=== PATIENT | female | born 1950 | race Caucasian/White ===

== ENCOUNTER 2017-10-31 10:32 | Inpatient (IN) | payer OTHER ==
[~2017-10-31] VITALS: Ht 157.5 cm; Wt 52.2 kg
[2017-10-31] MEDS ORDERED: SODIUM CHLORIDE 0.9% 1000ML 1,000 ML IV ONE (11:15)
[2017-10-31] MEDS ORDERED: THIAMINE HCL INJ 100 MG/ML 2ML VIAL IV ONE (11:15)
[2017-10-31 11:32] LABS: BASOPHILS % 0.3 % (0.0-1.0); EOSINOPHILS % 0.2 % (0.0-6.0); HEMOGLOBIN 14.8 g/dL (12.0-16.0); LYMPHOCYTES # (AUTO) 2.3 (1.0-3.2); LYMPHOCYTES % 20.7 % (18.0-39.1); MEAN CORPUSCULAR HEMOGLOBIN 29.4 pg (28-32); MEAN CORPUSCULAR HGB CONC 36.1 g/dL (31-35); MEAN CORPUSCULAR VOLUME 81.5 fL (81-99); MONOCYTES # (AUTO) 1.2 (0.2-0.8); MONOCYTES % 10.6 % (4.4-11.3); NEUTROPHILS # (AUTO) 7.4 (2.1-6.9); NEUTROPHILS % 67.7 % (38.7-80.0); PLATELET COUNT 292 x10e3/uL (140-360); RED BLOOD COUNT 5.03 x10e6/uL (3.6-5.1); RED CELL DISTRIBUTION WIDTH 12.2 % (11.7-14.4)
--- NOTE | 2017-10-31 11:38 | Diagnostic Imaging Report ---
PROCEDURE: Frontal and lateral views of the chest. COMPARISON: None. INDICATIONS: COUGH, CONGESTION FINDINGS: Lines/tubes: None. Lungs: The lungs are well inflated and clear. There is no evidence of pneumonia or pulmonary edema. Pleura: There is no pleural effusion or pneumothorax. Heart and mediastinum: The heart and the mediastinum are normal. Bones: No acute bony abnormality. IMPRESSION: 1. No acute cardiopulmonary disease. Dictated by: Andrez Youssef M.D. on 10/31/2017 at 11:44 Electronically approved by: Andrez Youssef M.D. on 10/31/2017 at 11:44
[2017-10-31 11:53] LABS: ALANINE AMINOTRANSFERASE 31 IU/L (0-55); ALKALINE PHOSPHATASE 131 IU/L (40-150); ANION GAP 18.2 mmol/L (8-16); BLOOD UREA NITROGEN 9 mg/dL (7-26); BUN/CREATININE RATIO 10 (6-25); CALCIUM 9.8 mg/dL (8.4-10.2); CARBON DIOXIDE 27 mmol/L (22-29); CHLORIDE 76 mmol/L (98-107); CREATININE, SERUM 0.89 mg/dL (0.57-1.11); EST GLOMERULAR FILTRATION RATE > 60 ML/MIN (60-); GLUCOSE 140 mg/dL (74-118); LIPASE 32 U/L (8-78); MAGNESIUM 1.7 MG/DL (1.3-2.1); PHOSPHORUS 4.5 MG/DL (2.3-4.7); POTASSIUM 3.2 mmol/L (3.5-5.1)
[2017-10-31 11:54] LABS: SODIUM 118 mmol/L (136-145)
[2017-10-31 12:41] LABS: BILIRUBIN,URINE NEGATIVE (NEGATIVE); CLARITY,URINE CLOUDY (CLEAR); COLOR,URINE YELLOW (YELLOW); KETONES,URINE NEGATIVE (NEGATIVE); LEUKOCYTE ESTERASE ,URINE 1+ (NEGATIVE); NITRITE,URINE NEGATIVE (NEGATIVE); PROTEIN,URINE DIPSTICK 1+ (NEGATIVE); URINE UROBILINOGEN 0.2 mg/dL (0.2 - 1)
[2017-10-31 12:51] LABS: BACTERIA,URINE MANY /HPF; EPITHELIAL CELLS,URINE RARE /LPF; RBC,URINE 0-5 /HPF (0-5)
[2017-10-31] MEDS ORDERED: SODIUM CHLORIDE 0.9% 50ML 50 ML ONE (13:00)
[2017-10-31] MEDS ORDERED: IOPAMIDOL 370 MG/ML 200 ML INFUS..BTL INJ ONE (13:00)
--- NOTE | 2017-10-31 13:00 | Diagnostic Imaging Report ---
PROCEDURE: CT ABDOMEN AND PELVIS WITH CONTRAST TECHNIQUE: The abdomen and pelvis were scanned utilizing a multidetector helical scanner from the diaphragm to the lesser trochanter after the IV administration of 100 cc of Isovue 370 and the oral administration of water. Coronal and sagittal multiplanar reformations were obtained. COMPARISON: None. INDICATIONS: MID ABDOMINAL DISCOMFORT, NAUSEA, WEAKNESS FINDINGS: LOWER THORAX: Normal. HEPATOBILIARY: Hepatic parenchyma is diffusely hypoattenuating compatible with steatosis. Low attenuation lesions (less than 10 Hounsfield units) measured 3.3 cm in segment 2 and 3.9 cm in segment 8-5 compatible with simple cysts. Additional subcentimeter hypoattenuating lesions, too small to further characterize but likely represent additional small cysts are identified within the liver. Small radiopaque calculi within the dependent portion of the gallbladder. No wall thickening or pericholecystic inflammation. SPLEEN: No splenomegaly. PANCREAS: No focal masses or ductal dilatation. ADRENALS: No adrenal nodules. KIDNEYS/URETERS: No hydronephrosis, stones, or solid mass lesions. PELVIC ORGANS/BLADDER: The urinary bladder is incompletely distended but otherwise unremarkable. The uterus is anteflexed and appears normal. No adnexal mass. PERITONEUM / RETROPERITONEUM: No free air or fluid. LYMPH NODES: No pelvic sidewall, retroperitoneal, or mesenteric lymphadenopathy. VESSELS: There is atherosclerotic calcification of the abdominal aorta and major branch vessels without aneurysmal dilatation. Moderate celiac axis origin stenosis. Widely patent SMA and BELEN origins. Portal vein, splenic vein, and central superior mesenteric vein are patent. GI TRACT: There is mild wall thickening and mucosal enhancement of the rectum and sigmoid colon. Normal appendix. The stomach is collapsed with prominence of the rugal folds. No small bowel dilatation to suggest obstruction. BONES AND SOFT TISSUES: No focal soft tissue abnormalities. No osseous destructive lesions. Degenerative disc changes of the lumbar spine. IMPRESSION: Findings suggest proctocolitis, likely infectious or inflammatory in nature. No aurelia perforation or drainable fluid collection. Atherosclerotic vascular disease. Cholelithiasis. Dictated by: Harpreet Slater M.D. on 10/31/2017 at 13:07 Electronically approved by: Harpreet Slater M.D. on 10/31/2017 at 13:07
[2017-10-31] MEDS ORDERED: SODIUM CHLORIDE FLUSH 10 ML SYR INJ PRN (14:30)
[2017-10-31] MEDS ORDERED: CHLORDIAZEPOXIDE HCL 25 MG CAP PO PRN (14:30)
[2017-10-31] MEDS ORDERED: KCL 40MEQ/0.9% SOD CHL 1,000 ML IV ONE (14:30)
[2017-10-31] MEDS: ERTAPENEM 1GM/NS 100ML 100 ML IV SCH (14:41)
[2017-10-31 16:45] VITALS: BP 130/67
[2017-10-31 17:55] VITALS: BP 130/67
[2017-10-31] MEDS ORDERED: SODIUM CHLORIDE 0.9% 1000ML 1,000 ML IV SCH (18:00)
[2017-10-31] MEDS ORDERED: CHLORDIAZEPOXIDE HCL 10 MG CAP PO PRN (18:00)
[2017-10-31] MEDS: FAMOTIDINE 20 MG/2 ML VIAL IV SCH (18:22)
[2017-10-31 19:50] LABS: ANION GAP 16.5 mmol/L (8-16); BLOOD UREA NITROGEN 7 mg/dL (7-26); BUN/CREATININE RATIO 10 (6-25); CARBON DIOXIDE 26 mmol/L (22-29); CHLORIDE 81 mmol/L (98-107); CREATININE, SERUM 0.72 mg/dL (0.57-1.11); EST GLOMERULAR FILTRATION RATE > 60 ML/MIN (60-); GLUCOSE 98 mg/dL (74-118)
--- NOTE | 2017-10-31 19:50 | Consultation ---
DATE OF CONSULTATION: October 31, 2017 ATTENDING PHYSICIAN: Rolo Douglas MD REASON FOR CONSULTATION: Hyponatremia. HISTORY OF PRESENT ILLNESS: The patient is a pleasant, 67-year-old female with no significant past medical history, positive for smoking, positive for alcohol abuse. She was admitted with nausea, vomiting, not feeling well for about a week. The patient has been vomiting maybe once a day. She drinks a 12-pack of beer or sometimes more every day, and her last drink was yesterday. She also smokes about a pack per day for a long time. She was not feeling well. No fever. No hematemesis. No melena or hematochezia. Found to have a sodium of 118. Per patient, she never had any problem with any sodium in the past. She takes [id number] Tylenol or ibuprofen occasionally for any pain. Found to have sodium of 118. Given 1 L IV fluid bolus and currently on normal saline and 40 of Kcl at 100 mL per hour. The potassium was 3.2. Magnesium was normal at 1.7. Currently, the patient is alert and oriented times 3. At present, she is not in apparent distress. PAST MEDICAL HISTORY: As above. PAST SURGICAL HISTORY: None. FAMILY HISTORY: No history of any kidney disease. SOCIAL HISTORY: As per HPI. ALLERGIES: KNOWN TO CODEINE. MEDICATIONS: Currently here in the hospital on famotidine, ertapenem, normal saline at 100 mL an hour with 40 of K in that. REVIEW OF SYSTEMS GENERAL: No fatigue. No fever, no chills. HEENT: No headache or blurred vision. NECK: No dysphagia. CARDIOVASCULAR: No chest pain, no PND. No orthopnea. RESPIRATORY: No shortness of breath or dyspnea on exertion. No cough. No hemoptysis. GI: Positive nausea. Positive intermittent vomiting. No abdominal pain. No hematemesis, melena or hematochezia. MUSCULOSKELETAL: No ankle swelling. NEUROLOGICAL: No numbness, weakness or tingling. SKIN: No new rash. PHYSICAL EXAMINATION VITAL SIGNS: Blood pressure 130/67, pulse 86, respirations 20, temperature 97.5, 97% on room air. GENERAL: Awake, alert and oriented times 3. Not in apparent distress. HEENT: PERRLA. The extraocular muscles are intact. NECK: No elevated JVD. HEART: S1 and S2. LUNGS: Clear bilaterally. ABDOMEN: Soft. Bowel sounds positive. EXTREMITIES: No edema. NEUROLOGICAL: No focal deficit. SKIN: No new rash. LABS: White count 10.9, hemoglobin 14.8, platelet count 292. Sodium 118, potassium 3.2, chloride 76, CO2 27, BUN 9, creatinine 0.89, glucose 140, calcium 9.8, phosphorus 4.5, magnesium 1.7. AST 50, ALT 31, albumin 4, lipase 32. UA showed many bacteria, positive leukocyte esterase. Chest x-ray: No acute cardiopulmonary process. CT of the abdomen and pelvis showed proctocolitis. No aurelia perforation. Cholelithiasis. ASSESSMENT AND PLAN 1. Hyponatremia, which is likely chronic as has been having symptoms for more than 24 hours. Currently on normal saline. Will repeat the sodium stat as the patient has a history of alcohol abuse. Will not increase the sodium more than 6 mEq in 24 hours. Her sodium was 118 at 11:30 in the morning. I will decrease IV fluids to 50 mL an hour for now. 2. Hypokalemia. Replace with IV. Magnesium is within the normal range. 3. Proctocolitis on antibiotic. 4. History of alcohol abuse on chlordiazepoxide. 5. Possible delirium tremens. I want to thank Dr. Douglas for the consult. Will follow the patient with you. Job#: [id number]
[2017-10-31 20:10] LABS: POTASSIUM 2.5 mmol/L (3.5-5.1); SODIUM 121 mmol/L (136-145)
[2017-10-31] MEDS ORDERED: POTASSIUM CHLORIDE 20 MEQ TAB CR PO STA (20:29)
[2017-10-31] MEDS ORDERED: POTASSIUM CHLORIDE 20MEQ/100ML 100 ML IV ONE (20:30)
[2017-10-31] MEDS ORDERED: NICOTINE 21 MG/EA PATCH TOP SCH (21:00)
[2017-10-31] MEDS ORDERED: POTASSIUM CHLORIDE 20 MEQ TAB CR PO NR (22:30)
[2017-11-01 05:00] LABS: BASOPHILS % 0.4 % (0.0-1.0); EOSINOPHILS % 0.4 % (0.0-6.0); HEMATOCRIT 34.2 % (34.2-44.1); LYMPHOCYTES # (AUTO) 2.4 (1.0-3.2); LYMPHOCYTES % 26.3 % (18.0-39.1); MEAN CORPUSCULAR HEMOGLOBIN 29.3 pg (28-32); MEAN CORPUSCULAR HGB CONC 35.1 g/dL (31-35); MEAN CORPUSCULAR VOLUME 83.6 fL (81-99); MONOCYTES # (AUTO) 1.1 (0.2-0.8); MONOCYTES % 11.6 % (4.4-11.3); NEUTROPHILS # (AUTO) 5.6 (2.1-6.9); NEUTROPHILS % 60.8 % (38.7-80.0); PLATELET COUNT 254 x10e3/uL (140-360); RED BLOOD COUNT 4.09 x10e6/uL (3.6-5.1); RED CELL DISTRIBUTION WIDTH 12.3 % (11.7-14.4)
[2017-11-01 05:40] LABS: ALANINE AMINOTRANSFERASE 26 IU/L (0-55); ALBUMIN 3.5 g/dL (3.5-5.0); ALBUMIN/GLOBULIN RATIO 1.1 (0.8-2.0); ALKALINE PHOSPHATASE 103 IU/L (40-150); ANION GAP 15.3 mmol/L (8-16); BLOOD UREA NITROGEN 7 mg/dL (7-26); BUN/CREATININE RATIO 12 (6-25); CALCIUM 9.4 mg/dL (8.4-10.2); CARBON DIOXIDE 23 mmol/L (22-29); CHLORIDE 93 mmol/L (98-107); CHOL/HDL RATIO 1.7 (3.0-3.6); CHOLESTEROL 134 MD/DL (0-199); EST GLOMERULAR FILTRATION RATE > 60 ML/MIN (60-); GLUCOSE 98 mg/dL (74-118); HDL CHOLESTEROL 79 MG/DL (40-60); LDL CHOLESTEROL 46 MG/DL (60-130); MAGNESIUM 1.7 MG/DL (1.3-2.1); PHOSPHORUS 2.7 MG/DL (2.3-4.7); POTASSIUM 4.3 mmol/L (3.5-5.1); SODIUM 127 mmol/L (136-145); TRIGLYCERIDES 46 MG/DL (0-149)
[2017-11-01 08:00] VITALS: BP 136/64
[2017-11-01] MEDS: FAMOTIDINE 20 MG/2 ML VIAL IV SCH ×2 (08:45→17:04)
[2017-11-01] MEDS: NICOTINE 21 MG/EA PATCH TOP SCH ×2 (08:45→20:45)
[2017-11-01 10:49] VITALS: BP 136/64
[2017-11-01 10:51] LABS: ANION GAP 12.8 mmol/L (8-16); BLOOD UREA NITROGEN 6 mg/dL (7-26); BUN/CREATININE RATIO 10 (6-25); CALCIUM 9.7 mg/dL (8.4-10.2); CARBON DIOXIDE 27 mmol/L (22-29); CHLORIDE 92 mmol/L (98-107); CREATININE, SERUM 0.63 mg/dL (0.57-1.11); EST GLOMERULAR FILTRATION RATE > 60 ML/MIN (60-); GLUCOSE 105 mg/dL (74-118); POTASSIUM 4.8 mmol/L (3.5-5.1); SODIUM 127 mmol/L (136-145)
[2017-11-01 12:00] VITALS: BP_SYST 131; BP_SYST 136; BP_DIAS 64; BP_DIAS 81
[2017-11-01] MEDS: ERTAPENEM 1GM/NS 100ML 100 ML IV SCH (13:32)
[2017-11-01] MEDS: DEXTROSE 5% 1,000 ML IV SCH (13:32)
[2017-11-01 16:00] VITALS: BP 154/73
[2017-11-01] MEDS ORDERED: ACETAMINOPHEN 325 MG TAB PO PRN (16:15)
--- NOTE | 2017-11-01 16:26 | History and Physical ---
CHIEF COMPLAINT: Generalized weakness, not feeling well, dizziness. HISTORY OF PRESENT ILLNESS: Patient is a 67-year-old female with alcoholism, extensive alcohol consumption, who came in with abdominal pain, generalized weakness, nausea, vomiting and progressive weight loss. Patient has a sodium level that was very low on admission. She drinks at least a couple of packs of beers per day. Her sodium level was on admission 118. Potassium level was 3.2. Patient was very weak. Alcohol level is less than 10 since the patient was unable to eat and drink due to her nausea and vomiting. The patient's chest x-ray showed no mass. No pleural effusion. She also had abdominal and pelvic CAT scan that showed cholelithiasis and atherosclerotic vascular disease, but also suggestive of proctocolitis. Patient also had urinary bladder infection. Urinalysis showed 1+ leukocyte esterase, many bacteria. Urine random sodium was 38. Urine osmolality is pending. The patient is otherwise stable. PAST MEDICAL HISTORY: Alcoholism, hypertension, smoker, and progressive weight loss. SOCIAL HISTORY: Patient is a pack per day smoker for many years. She drinks approximately 2 packs of beers per day. ALLERGIES: CODEINE. HOME MEDICATIONS: None. REVIEW OF SYSTEMS: As mentioned. PHYSICAL EXAMINATION GENERAL: The patient is not in acute distress. She is awake. VITAL SIGNS: Temperature is 98. Blood pressure 130/64. Pulse rate 76. Respirations 18. HEENT: Normocephalic, atraumatic. Anicteric. NECK: Supple grossly. PULMONARY: Diminished breath sounds. CARDIOVASCULAR: S1 and S2, regular rate and rhythm. ABDOMEN: Soft. Positive bowel sounds. Cachexia. No distention. EXTREMITIES: No gross cyanosis or edema. NEUROLOGIC: There is no gross focal deficit. LABORATORY: Urinalysis: Cloudy urine, 1+ leukocyte esterase. Sodium is 118, potassium 3.2, chloride 76, bicarb 27. BUN 9 and creatinine 0.9. Glucose 140. Liver enzymes: AST is 50, ALT 31. Vitamin B12 is 384. WBC is 10.9. Hemoglobin 14.8. Hematocrit 41. Platelets 292. Toxicology: Alcohol less than 10. IMAGING: As mentioned, possible proctitis on CT scan of abdomen. Chest x-ray is unremarkable. IMPRESSION 1. Severe hyponatremia. 2. Alcoholism. 3. Intractable nausea and vomiting, could be gastritis. 4. Multiple baseline problems. PLAN: Continue with IV fluid rehydration. Workup for low sodium level. Renal consult. Seizure precautions. DT precautions. Librium as needed. PPI. Patient should be able to go home within 2 to 3 days. Job#: [id number]
[2017-11-01 20:46] VITALS: BP 153/89
[2017-11-02] VITALS: BP 149/74
[2017-11-02 00:46] VITALS: BP 160/86
[2017-11-02] MEDS: DEXTROSE 5% 1,000 ML IV SCH (06:00)
[2017-11-02 06:36] VITALS: BP 169/84
[2017-11-02 08:00] VITALS: BP 148/70
[2017-11-02] MEDS: FAMOTIDINE 20 MG/2 ML VIAL IV SCH (09:08)
[2017-11-02 12:49] VITALS: BP 160/77
[2017-11-02 13:26] VITALS: BP 148/70
[2017-11-02] MEDS: ERTAPENEM 1GM/NS 100ML 100 ML IV SCH (14:24)
--- NOTE | 2017-11-02 15:47 | Discharge Summary ---
[employer]: Dr. Mc Velarde. FINAL DIAGNOSES 1. Severe hyponatremia with a sodium level of 112. 2. Alcoholism. 3. Tobacco smoker with chronic obstructive pulmonary disease. 4. Electrolyte disorder, corrected. 5. Proctocolitis. 6. Urinary tract infection. SUMMARY: Patient is a 67-year-old female who is an alcoholic, drinking two packs of beer per day. She is also a heavy smoker, 1 to 2 packs per day for many years. Came in with low sodium level. The patient is now doing much better. Sodium level is 127, potassium 4.8, chloride 92, bicarb 27, BUN 6, creatinine 0.6, glucose is 105. Her hemoglobin and hematocrit are 12 and 34 respectively. The patient had abdominal CT scan showing that she has proctocolitis and also she had a urinary tract infection. The patient's white cell count has normalized. The urine culture was not done, but urinalysis showed 1+ leukocyte esterase, many bacteria. Patient is stable. She will go home today with Cipro 500 mg twice a day for 7 days, Flagyl 5 mg twice a day for 7 days. The patient will take Claritin 10 mg daily, Atarax 25 mg q.6 p.r.n. for Librium 10 mg q.6 p.r.n. for alcohol craving, ProAir HFA 2 puffs q.4 hours as needed, NicoDerm patch 21 mg to chest wall daily for 14 days and Tessalon Perles 100 mg 1 to 2 tablets q.4 hours as needed for cough. The patient is stable. Discharge home today. Job#: [id number] ILDA
[2017-11-02] MEDS ORDERED: PROAIR HFA INH8.5 GM INH (15:53)
[2017-11-02] MEDS ORDERED: NICOTINE PATCH1 EAC1 TD (15:54)
[2017-11-02] MEDS ORDERED: TESSALON PERLE100 MG PO (15:55)
[2017-11-02] MEDS ORDERED: CLARITIN-D 241 EACH PO (15:55)
[2017-11-02] MEDS ORDERED: HYDROXYZINE HCL25 MG PO (15:56)
[2017-11-02] MEDS ORDERED: CIPRO500 MG PO (15:56)
[2017-11-02] MEDS ORDERED: FLAGYL250 MG PO (15:57)
[2017-11-02] MEDS ORDERED: CHLORDIAZEPOXID25 MG PO (15:58)
== END 2017-11-02 16:34 | disposition home or self-care (01) | DRG 897 ==
LOC: ER 10:32 → ERHOLD 14:27 → MED/SURG2 15:51
PROVIDERS: ADMIT Internal Medicine; ATTEND Internal Medicine
DX: F10.231 Alcohol dependence with withdrawal delirium (principal); E87.1 Hypo-osmolality and hyponatremia; K29.20 Alcoholic gastritis without bleeding; E86.0 Dehydration; K52.82 Eosinophilic colitis; E87.6 Hypokalemia; J44.9 Chronic obstructive pulmonary disease, unspecified; F17.200 Nicotine dependence, unspecified, uncomplicated; E87.8 Other disorders of electrolyte and fluid balance, not elsewhere classified; K52.9 Noninfective gastroenteritis and colitis, unspecified; K70.0 Alcoholic fatty liver; N30.90 Cystitis, unspecified without hematuria; R63.4 Abnormal weight loss; Z68.21 Body mass index [BMI] 21.0-21.9, adult
CPT/HCPCS: 36415; 71046; 74177; 80048; 80053; 80061; 80320; 81001; 82140; 82607; 82977; 83690; 83735; 83935; 84100; 84300; 84425; 85025; 99284; J3411; J3480; J7030; J7070; Q9967

== ENCOUNTER 2017-12-19 09:25 | Emergency (ER) | payer OTHER ==
[~2017-12-19] VITALS: Ht 157.5 cm; Wt 52.2 kg
[~2017-12-19 09:25] MED LIST: CHLORDIAZEPOXID25 MG PO; CIPRO500 MG PO; CLARITIN-D 241 EACH PO; FLAGYL250 MG PO; HYDROXYZINE HCL25 MG PO; NICOTINE PATCH1 EAC1 TD; PROAIR HFA INH8.5 GM INH; TESSALON PERLE100 MG PO
--- NOTE | 2017-12-19 13:05 | Diagnostic Imaging Report ---
History: Bilateral leg pain Comparison studies: None Technique: Axial images were obtained from T11 through the sacrum. Coronal and sagittal images reconstructed from the axial data. Intravenous contrast: None Dose modulation, iterative reconstruction, and/or weight based adjustment of the mA/kV was utilized to reduce the radiation dose to as low as reasonably achievable. Findings: Number of non-rib bearing vertebral bodies: 5 Alignment: Normal lordosis. No scoliosis. Soft tissues: No acute abnormalities. Atherosclerotic calcifications of the abdominal aorta Paraspinal muscles: Unremarkable. Vertebrae: No fractures, infection or neoplasm. Degenerative changes: Partially visualized intervertebral disc degenerative changes at T11-T12 and T12-L1 with associated small Schmorl node and sclerotic changes at L1 superior endplate L1-L2: Patent disc degeneration with decreased intervertebral space and mild L1 inferior endplate sclerotic changes in its posterior aspect. Asymmetric left disc bulge with patent canal and foramina L2-L3: Mild disc bulge with patent canal and foramina L3-L4: Asymmetric left disc bulge with patent canal and mild left foraminal narrowing L4-L5: Diffuse disc bulge with patent canal and mild bilateral foraminal narrowing L5-S1: Diffuse disc bulge and mild facet hypertrophy with patent canal and foramina Sacroiliac joints: No degenerative changes. IMPRESSION: 1. No acute lumbar abnormality. 2. Disc bulges at the lower lumbar spine results in mild left foraminal narrowing at L3-L4 and mild bilateral foraminal narrowing at L4-L5. No significant canal stenosis. Patent foramina. Signed by: DR Tuan Belle M.D. on 12/19/2017 1:02 PM
== END 2017-12-19 14:08 | disposition home or self-care (01) ==
LOC: ER 09:25
DX: M79.662 Pain in left lower leg (principal); M79.671 Pain in right foot; M54.5 Low back pain
CPT/HCPCS: 72131; 99283